=== PATIENT | male | born 1985 ===

== ENCOUNTER → 2017-08-06 | Outpatient (CLI) | payer BC | LOC: LAB SHORT 17:16 → LAB EV 17:16 | DX: M25.571 Pain in right ankle and joints of right foot (principal) | CPT/HCPCS: 84550 ==

== ENCOUNTER → 2017-09-04 | Outpatient (CLI) | payer BC ==
[2017-09-04 16:54] LABS: Body Fluid Crystals NEG (NEGATIVE)
== END ==
LOC: LAB 16:07 → LAB SHORT 16:07
PROVIDERS: Family Medicine
DX: M25.571 Pain in right ankle and joints of right foot (principal)
CPT/HCPCS: 89060

== ENCOUNTER → 2017-10-21 | Outpatient (CLI) | payer BC | END | disposition home or self-care (01) | LOC: LAB EV 08:08 → LAB SHORT 08:08 | DX: M10.9 Gout, unspecified (principal) | CPT/HCPCS: 84550 ==

== ENCOUNTER 2024-10-21 14:21 | Emergency (ER) | payer OTHER ==
[~2024-10-21] VITALS: Ht 170.2 cm; Wt 104.3 kg
[2024-10-21 14:58] VITALS: BP 163/119
[2024-10-22 16:52] LABS: HIV 1,2 COMBO ANTIGEN/ANTIBODY Negative (Negative)
[2024-10-22 19:16] LABS: HEPATITIS B SURFACE ANTIBODY 6.15 IU/L; HEPATITIS BE ANTIBODY Negative (Negative); HEPATITIS BE ANTIGEN Negative (Negative)
== END 2024-10-21 16:00 | disposition home or self-care (01) ==
LOC: ER 14:21
PROVIDERS: Student in an Organized Health Care Education/Training Program
DX: Z77.21 Contact with and (suspected) exposure to potentially hazardous body fluids (principal); I10 Essential (primary) hypertension; Y04.8XXA Assault by other bodily force, initial encounter; Z88.8 Allergy status to other drugs, medicaments and biological substances
CPT/HCPCS: 36415; 86707; 87340; 87350; 87389; 99283